=== PATIENT | female | born 1990 | race Caucasian/White ===

== ENCOUNTER 2017-08-06 19:56 | Emergency (ER) ==
[2017-08-06 20:01] VITALS: BP 143/94; TEMP 99.4; BMI 41.1
[2017-08-06] MEDS ORDERED: EYE-STREAM OP STA (20:02)
[2017-08-06] MEDS ORDERED: FLUORETS OP STA (20:02)
[2017-08-06] MEDS ORDERED: TETRACAINE 0.5% OPTH SOL OP STA (20:02)
[2017-08-06] MEDS ORDERED: TETRACAINE 0.5% UNIT-DOSE OP ONE ×2 (20:05→20:12)
[2017-08-06] MEDS ORDERED: GENTAK OPTH OINT OP STA (20:14)
--- NOTE | 2017-08-06 20:17 | ED.PDOC ---
General ED Provider: Dr. ADEOLA BIRD-ER Chief Complaint: Eye Problem Stated Complaint: i thought i got a piece of sheet rock in my eye-it rodriguez Time Seen by Physician: 20:15 Mode of Arrival: Walk-In Information Source: Patient Exam Limitations: No limitations Primary Care Provider: JULIET LY Nursing and Triage Documentation Reviewed and Agree: Yes EENT Complaint Exam - Eye Complaint/Exam Onset/Duration: 1 hr Symptoms Are: Still present Timing: Constant Initial Severity: Mild Current Severity: Mild Location: Left Character: Reports: Dull Aggravating: Reports: None Alleviating: Reports: None Associated Signs and Symptoms: Reports: Clear drainage. Denies: Photophobia, Purulent drainage, Vision impairment, Fever, Swelling Related History: Reports: Similar episode Eye Surgical History: Reports: None Penetrating Injury Risk Factors: None Globe Rupture Risk Factors: None Acute Glaucoma Risk Factors: None Optic Artery Occlusion Risk Factors: None Visual Field: Normal Extraocular Movement: Normal Orbit Findings: Normal Globe Findings: Intact Lid Findings: Normal Corneal Findings: Clear Fluorescein Uptake: No Fundi: Normal Differential Diagnoses: Corneal Abrasion, Foreign Body Review of Systems - Review Of Systems Constitutional: Reports: No symptoms Eyes: Reports: Blurred vision, Vision change, Drainage, Inflammation Ears, Nose, Mouth, Throat: Reports: No symptoms Respiratory: Reports: No symptoms Cardiac: Reports: No symptoms GI: Reports: No symptoms : Reports: No symptoms Musculoskeletal: Reports: No symptoms Skin: Reports: No symptoms Neurological: Reports: No symptoms Endocrine: Reports: No symptoms Hematologic/Lymphatic: Reports: No symptoms All Other Systems: Reviewed and Negative Past Medical History - Past Medical History Previously Healthy: Yes Endocrine: Reports: None Cardiovascular: Reports: None Respiratory: Reports: None Hematological: Reports: None Gastrointestinal: Reports: None Genitourinary: Reports: None Neuro/Psych: Reports: None Musculoskeletal: Reports: None Cancer: Reports: None Last Menstrual Period: 2 DAYS AGO - Surgical History General Surgical History: Reports: Unknown - Family History Family History: Reports: Unknown - Social History Smoking Status: Current every day smoker, Light tobacco smoker Hx Substance Use: No Alcohol Screening: None - Immunizations Tetanus Shot up to Date: Yes Physical Exam - Physical Exam Appearance: Well-appearing, No pain distress, Well-nourished Pain Distress: Mild Eyes: NAUN, EOMI, Conjunctiva inflammed ENT: Ears normal, Nose normal, Oropharynx normal Neck: Supple Respiratory: Airway patent, Breath sounds clear, Breath sounds equal, Respirations nonlabored Cardiovascular: RRR, Pulses normal, No rub, No murmur GI/: Soft, Nontender, No masses, Bowel sounds normal, No Organomegaly Musculoskeletal: Normal strength, ROM intact, No edema, No calf tenderness Skin: Warm, Dry, Normal color Neurological: Sensation intact, Motor intact, Reflexes intact, Cranial nerves intact, Alert, Oriented Psychiatric: Affect appropriate, Mood appropriate, Anxious Procedures - Eye Procedure Location of Foreign Body: ?medial aspect of left eye Tetracaine Drops Administered: Yes Eye FB Removal: Other (no foreign body seen) Progress: after fluoroscein dye instilled--gentac ointment was applied and eye patch applied... Critical Care Note - Critical Care Note Total Time (mins): 0 Course - Course Orders, Labs, Meds: Orders Category Date Time Status Eye Irrigation [ED EYE IRRIGATION] .ONCE EMERGENCY 08/06/17 20:13 Active Eye [ED EYE PATCH] .ONCE EMERGENCY 08/06/17 20:14 Active Balanced Salt Solution [Eye-Stream] MEDS 08/06/17 20:02 Discontinued 1 bottle OP ONCE STA Fluorescein Sodium [Fluorets] MEDS 08/06/17 20:02 Discontinued 1 strip OP ONCE STA Gentamicin Sulfate [Gentak Opth Oint] MEDS 08/06/17 20:14 Stat 1 applic OP ONCE STA Tetracaine HCl [Tetracaine 0.5% Opth Lisandra] MEDS 08/06/17 20:02 Discontinued 2 drop OP ONCE STA Tetracaine HCl/Pf [Tetracaine 0.5% Unit-Dose] MEDS 08/06/17 20:05 Discontinued 1 drop OP .STK-MED ONE Medications Generic Name Dose Route Start Last Admin Trade Name Freq PRN Reason Stop Dose Admin Gentamicin Sulfate 1 applic 08/06/17 20:14 Gentak Opth Oint OP 08/06/17 20:15 ONCE STA Discontinued Medications Generic Name Dose Route Start Last Admin Trade Name Freq PRN Reason Stop Dose Admin Eye Irrigation Solution 1 bottle 08/06/17 20:02 08/06/17 20:13 Eye-Stream OP 08/06/17 20:03 1 bottle ONCE STA Administration Fluorescein Sodium 1 strip 08/06/17 20:02 08/06/17 20:13 Fluorets OP 08/06/17 20:03 1 strip ONCE STA Administration Tetracaine HCl 2 drop 08/06/17 20:02 08/06/17 20:13 Tetracaine 0.5% Opth Lisandra OP 08/06/17 20:03 Not Given ONCE STA Vital Signs: Temp Pulse Resp BP Pulse Ox 08/06/17 19:57 99.4 F 112 H 20 143/94 H 95 Departure - Departure Time of Disposition: 20:18 Disposition: HOME SELF-CARE Discharge Problem: Conjunctivitis Qualifiers: Conjunctivitis type: acute Acute conjunctivitis type: unspecified Laterality: left Qualified Code(s): H10.32 - Unspecified acute conjunctivitis, left eye Instructions: Conjunctivitis (ED) Condition: Good Pt referred to PMD for follow-up: Yes Additional Instructions: keep eye patched tonight--remove patch in am--if eye still feels irritated--see your eye doctor tomorrow Allergies/Adverse Reactions: Allergies acetaminophen [From NyQuil] Adverse Reaction (Verified 08/06/17 20:02) ANAPHYLACTIC dextromethorphan [From NyQuil] Adverse Reaction (Verified 08/06/17 20:02) ANAPHYLACTIC doxylamine [From NyQuil] Adverse Reaction (Verified 08/06/17 20:02) ANAPHYLACTIC pseudoephedrine [From NyQuil] Adverse Reaction (Verified 08/06/17 20:02) ANAPHYLACTIC Home Medications: Ambulatory Orders 1 [No Reported Medications] 08/06/17 Disposition Discussed With: Patient, Family
== END 2017-08-06 20:27 | disposition home or self-care (01) ==
LOC: ED 19:56
DX: H10.32 Unspecified acute conjunctivitis, left eye (principal); F17.210 Nicotine dependence, cigarettes, uncomplicated
CPT/HCPCS: 99283